=== PATIENT | female | born 1950 | race Caucasian/White ===

== ENCOUNTER → 2023-05-13 | Outpatient (CLI) | payer OTHER ==
[2023-05-13 15:48] LABS: CREATININE 0.9 mg/dL (0.5-1.5); POTASSIUM 4.4 mmol/L (3.5-5.1)
== END | disposition home or self-care (01) ==
LOC: LAB 13:22
PROVIDERS: ATTEND Student in an Organized Health Care Education/Training Program
DX: I73.9 Peripheral vascular disease, unspecified (principal)
CPT/HCPCS: 36415; 80048